=== PATIENT | female | born 1940 | race American Indian/Alaskan Native ===

== ENCOUNTER 2016-10-21 11:16 | Outpatient (CLI) | payer MEDICARE, OTHER ==
--- NOTE | 2016-10-21 12:12 | Mammography Report ---
Screening mammogram: Prior studies dating back to 2014. There are scar deformities in the lateral right breast from prior surgeries. The breast pattern otherwise is generally fatty replaced. Scattered benign-appearing calcifications are primarily identified in the infero-medial right breast. CAD used. Impression: Stable, benign breast findings. Recommendation: Annual mammogram followup. BI-RADS CATEGORY: 1 = Negative ACR BI-RADS MAMMOGRAPHIC CODES: 0 = Needs additional imaging evaluation; 1 = Negative; 2 = Benign; 3 = Probably benign; 4 = Suspicious; 5 = Malignant; 6 = Known biopsy-proven malignancy COMMENT: 1. Dense breast tissue, i.e., adenosis, fibrocystic changes, etc., may obscure an underlying neoplasm. 2. Approximately 10% of cancers are not detected with mammography. 3. A negative mammography report should not delay biopsy if a clinically suspicious mass is present. The
== END 2016-10-21 11:17 | disposition home or self-care (01) ==
LOC: SPVWC 11:16
PROVIDERS: ATTEND Internal Medicine Hematology & Oncology
DX: Z12.31 Encounter for screening mammogram for malignant neoplasm of breast (principal)
CPT/HCPCS: 77067; G0202

== ENCOUNTER 2017-11-02 08:55 | Outpatient (CLI) | payer MEDICARE, OTHER ==
--- NOTE | 2017-11-03 13:43 | Mammography Report ---
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 COMPARISON:10/20/15 FINDINGS: The breasts are mostly fatty with scattered bilateral benign calcifications. Stable right upper outer postsurgical scar and stable skin thickening of the right breast. No mass, suspicious architectural distortion or suspicious calcifications. IMPRESSION: No mammographic evidence of malignancy. BI-RADS CATEGORY: 2 -- Benign RECOMMENDATION: Routine mammographic screening in one year. COMMENT: Patient follow-up letters are generated via our [employer] application.
== END 2017-11-02 08:56 | disposition home or self-care (01) ==
LOC: SPVWC 08:55
PROVIDERS: ATTEND Internal Medicine Hematology & Oncology
DX: Z12.31 Encounter for screening mammogram for malignant neoplasm of breast (principal); Z90.11 Acquired absence of right breast and nipple
CPT/HCPCS: 77067

== ENCOUNTER 2018-11-05 10:36 | Outpatient (CLI) | payer MEDICARE, OTHER ==
--- NOTE | 2018-11-05 14:18 | Mammography Report ---
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 COMPARISON:11/02/17 FINDINGS: The breasts are mostly fatty with a few bilateral scattered fibroglandular densities. Scattered bilateral benign calcifications. Stable right upper outer postsurgical scar and stable skin thickening of the right breast No mass, suspicious architectural distortion or suspicious calcifications. IMPRESSION: No mammographic evidence of malignancy. BI-RADS CATEGORY: 2 -- Benign RECOMMENDATION: Routine mammographic screening in one year. COMMENT: Patient follow-up letters are generated via our [employer] application.
== END 2018-11-05 10:37 | disposition home or self-care (01) ==
LOC: SPVWC 10:36
PROVIDERS: ATTEND Internal Medicine Hematology & Oncology
DX: Z12.31 Encounter for screening mammogram for malignant neoplasm of breast (principal)
CPT/HCPCS: 77067

== ENCOUNTER 2019-11-18 13:49 | Outpatient (CLI) | payer MEDICARE, OTHER ==
--- NOTE | 2019-11-19 11:20 | Mammography Report ---
DIGITAL SCREENING MAMMOGRAM WITH CAD, 11/18/2019 INDICATION: Routine screening mammography. Breast cancer survivor status post right partial mastectom y and radiation therapy for DCIS in 2012. TECHNIQUE: Digital bilateral 2D mammography was obtained in the craniocaudal and mediolateral obliq ue projections. This examination was interpreted with the benefit of Computer-Aided Detection analysi s. COMPARISON: 11/05/2018 FINDINGS: Breast Density: The breasts are heterogeneously dense, which may obscure small masses. There is no evidence of dominant mass, suspicious calcifications or architectural distortion in eithe r breast. Stable right upper outer benign postsurgical scar and stable moderate skin thickening of th e right breast. Scattered bilateral benign calcifications. IMPRESSION: No mammographic evidence of malignancy. Follow up recommendation: Routine yearly BI-RADS Category 2: Benign. A "normal" or negative report should not discourage follow up or biopsy of a clinically significant f inding. A written summary of these findings will be mailed to the patient. The patient will be entered into a mammography reporting system which will generate a reminder letter for the patient's next appointmen t at the appropriate interval. The [employer] recommends yearly mammograms starting at age 40 and continuing as l wilman as a woman is in good health. Breast MRI is recommended for women with an approximate 20-25% or greater lifetime risk of breast cancer, including women with a strong family history of breast or ova jeffery cancer or who have been treated for Hodgkin's disease. Signer Name: Amauri Lopez MD Signed: 11/19/2019 11:16 AM Workstation Name: [id number]
== END 2019-11-18 13:50 | disposition home or self-care (01) ==
LOC: SPVWC 13:49
PROVIDERS: ATTEND Internal Medicine Hematology & Oncology
DX: Z12.31 Encounter for screening mammogram for malignant neoplasm of breast (principal)
CPT/HCPCS: 77067

== ENCOUNTER 2020-11-18 11:14 | Outpatient (CLI) | payer MEDICARE, OTHER ==
--- NOTE | 2020-11-18 13:04 | Mammography Report ---
DIGITAL SCREENING MAMMOGRAM WITH CAD, 11/18/2020 CLINICAL INFORMATION / INDICATION: Routine screening TECHNIQUE: Digital bilateral 2D mammography was obtained in the craniocaudal and mediolateral obliqu e projections. This examination was interpreted with the benefit of Computer-Aided Detection analysis . COMPARISON: 11/18/2019 FINDINGS: Breast Density: There are scattered areas of fibroglandular density. No dominant mass, suspicious calcifications, or architectural distortion in either breast. Bilateral benign-appearing calcifications are again seen. Right surgical changes and radiation therap y changes are again seen. IMPRESSION: No mammographic evidence of malignancy. Follow up recommendation: Routine yearly BI-RADS Category 2: Benign. A "normal" or negative report should not discourage follow up or biopsy of a clinically significant f inding. A written summary of these findings will be mailed to the patient. The patient will be entered into a mammography reporting system which will generate a reminder letter for the patient's next appointmen t at the appropriate interval. The [employer] recommends yearly mammograms starting at age 40 and continuing as l wilman as a woman is in good health. Breast MRI is recommended for women with an approximate 20-25% or greater lifetime risk of breast cancer, including women with a strong family history of breast or ova jeffery cancer or who have been treated for Hodgkin's disease. Signer Name: Manuel Roberts MD Signed: 11/18/2020 12:59 PM Workstation Name: [id number]
== END 2020-11-18 11:15 | disposition home or self-care (01) ==
LOC: SPVWC 11:14
PROVIDERS: ATTEND Internal Medicine Hematology & Oncology
DX: Z12.31 Encounter for screening mammogram for malignant neoplasm of breast (principal)
CPT/HCPCS: 77067